=== PATIENT | male | born 1985 | race African-American/Black ===

== ENCOUNTER 2017-02-03 13:32 | Inpatient (IN) ==
[2017-02-03] MEDS ORDERED: *HR* HYDROmorphone (PF) 1 MG/ML SYRINGE IVP ONE (13:38)
[2017-02-03] MEDS ORDERED: Ondansetron 4 MG/2 ML VIAL IVP ONE (13:38)
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
[2017-02-03] MEDS ORDERED: 0.9 % Sodium Chloride 1,000 ML ONE (13:59)
[2017-02-03 14:27] LABS: Bilirubin,Urine Small (Negative); Blood,Urine Large (Negative); Clarity,Urine Turbid (Clear); Color,Urine Dark Yellow (Yellow); Glucose,Urine (UA) Normal (Normal); Ketones,Urine Negative (Negative); Leukocyte Esterase,Urine Negative (Negative); Nitrite,Urine Negative (Negative); PH,Urine 5.5 pH Units (5.0-8.0); Protein,Urine 100 mg/dL (Neg-Trace); Specific Gravity,Urine 1.019 (1.010-1.025); Urobilinogen,Urine Normal (Normal)
[2017-02-03 14:28] LABS: Bacteria,Urine None Seen per hpf (None-Few); Hyaline Casts,Urine None Seen per lpf (None-Few); RBC,Urine 50-100 per hpf (0-3); Squamous Epithelial Cell,Urine Many per lpf (None-Few); WBC,Urine 15-30 per hpf (0-3)
[2017-02-03 14:34] LABS: Amphetamine Screen,Urine Positive ng/mL (Cutoff=1000); Barbiturate Screen,Urine Negative ng/mL (Cutoff=200); Benzodiazepines Screen,Urine Negative ng/mL (Cutoff=200); Cannabinoid Screen,Urine Negative ng/mL (Cutoff = 50); Cocaine Screen,Urine Positive ng/mL (Cutoff= 300); Opiate Screen,Urine Positive ng/mL (Cutoff=300); Phencyclidine Screen,Urine Negative ng/mL (Cutoff=25)
[2017-02-03 14:38] LABS: Amorphous Sediment,Urine Many (Few)
[2017-02-03 14:46] LABS: Basophils % 0.1 %; Hematocrit 43.9 % (37.5-50.1); Hemoglobin 16.2 g/dL (12.9-16.9); Immature Granulocytes % 0.7 % (0-4); Lymphocytes # 1.8 K/mcL (0.6-4.6); Mean Corpuscular HGB Conc 36.9 g/dL (31.6-35.5); Mean Corpuscular Hemoglobin 31.8 pg (28.0-33.3); Mean Corpuscular Volume 86.2 fL (83.0-100.0); Mean Platelet Volume 10.5 fL (9.4-12.4); Monocytes # 1.9 K/mcL (0.0-1.3); Monocytes % 10.5 %; Neutrophils # 13.9 K/mcL (1.6-8.9); Platelet Count 272 K/mcL (140-400); Red Blood Count 5.09 M/mcL (4.19-5.50); Red Cell Distribution Width 11.5 % (11.5-14.5); Segmented Neutrophils % 78.7 %
[2017-02-03 14:57] LABS: INR 1.1; Prothrombin Time 11.5 Seconds (9.4-12.1)
[2017-02-03 15:08] LABS: Alanine Aminotransferase 296 Units/L (0-55); Albumin 4.5 g/dL (3.5-5.0); Albumin/Globulin Ratio 0.9 (1.1-2.2); Alkaline Phosphatase 94 Units/L (38-126); Aspartate Amino Transferase 588 Units/L (5-34); BUN/Creatinine Ratio 17 (6-26); Calcium 7.4 mg/dL (8.6-10.8); Carbon Dioxide 15 mEq/L (19-29); Chloride 80 mEq/L (98-109); Globulin 4.8 g/dL (2.4-3.5); Glucose 102 mg/dL (70-99); Lipase 39 Units/L (8-78); Osmolality,Calculated 295 (280-300); Potassium 4.6 mEq/L (3.5-4.5); Sodium 122 mEq/L (136-145); Total Protein 9.3 g/dL (6.0-8.3); eGFR For African Americans 11 (> 60); eGFR For Non-African Americans 9 (> 60)
[2017-02-03 15:11] LABS: Blood Urea Nitrogen 127 mg/dL (8-26)
[2017-02-03] MEDS ORDERED: 0.9 % Sodium Chloride 1,000 ML IVC ONE ×2 (15:16→15:24)
[2017-02-03 15:41] LABS: Acetaminophen < 1.0 mcg/mL (10-30)
--- NOTE | 2017-02-03 15:46 | Event Note ---
Date of Encounter: 02/03/17 Time of Encounter: 15:42 1. Acute renal failure likely secondary to rhabdomyolysis, severe dehydration, polysubstance abuse Start IV fluids, monitor creatinine, call nephrology consult 2. Elevated LFTs probably secondary to prior history of hepatitis C Recheck LFTs in the morning 3. Abdominal pain of unclear etiology, no evidence of obstruction on the CT scan, consider possible opiate withdrawal 4. History of IV drug abuse and polysubstance abuse Order Ativan as needed 5. Accelerated hypertension, order hydralazine IV as needed 6. Hyponatremia, unclear etiology Order urine sodium, protein, osmolality, check TSH, check cortisol Pepcid for GI prophylaxis and early ambulation for DVT prophylaxis. The patient will be admitted as inpatient, expected to stay more than 2 midnights. Full code. Time spent on this admission 40 minutes. High risk due to acute renal failure H&P to be written by LUKASZ Estrada
[2017-02-03] MEDS ORDERED: *HR* Morphine 2 MG/ML SYRINGE IVP PRN (16:09)
[2017-02-03 16:10] LABS: Creatine Kinase > 42670 Units/L (30-200)
[2017-02-03] MEDS ORDERED: 0.9 % Sodium Chloride 1,000 ML IVC SCH (16:15)
[2017-02-03] MEDS ORDERED: Ondansetron 4 MG/2 ML VIAL IVP PRN (16:33)
[2017-02-03] MEDS ORDERED: Naloxone 0.4 MG/ML INJ IVP PRN (16:33)
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
[2017-02-03 17:01] LABS: Protein/Creatinine Ratio,Urine 0.52 mg/mg (0-0.20)
[2017-02-03] MEDS: *HR* LORazepam 2 MG/ML VIAL IVP PRN ×2 (18:25→21:51)
--- NOTE | 2017-02-03 18:56 | Nephrology Consult Note ---
Date of Encounter: 02/03/17 Time of Encounter: 17:15 Assessment and Plan (1) CAROL (acute kidney injury) Status: Acute Elevated SCr in the setting of polypharmacy, accelerated HTN, elevated LFTs and rhabdomyolysis No acute indication for [employer] just yet Aggressive volume repletion warranted, first with saline and then bicarb can be added Will check uric acid, phos levels Urine studies (2) Hyponatremia Status: Acute Likely due to CAROL at 128, should improve with saline. Agree with repeat later (3) Metabolic acidosis Status: Acute Should improve if CAROL improves with saline but can add bicarb gtt by tomorrow if no significant improvement (4) Rhabdomyolysis Status: Acute Continue aggresive volume repletion Daily CPK Qualifiers: Rhabdomyolysis type: non-traumatic Qualified Code(s): M62.82 - Rhabdomyolysis (5) Accelerated hypertension Status: Acute Agree with IV meds prn History of Present Illness - Reason for Consult Consult date: 02/03/17 Acute Kidney Injury Requesting physician: Kemal Estrdaa - History of Present Illness 31 y o male with PMH of hep C and polypharmacy abuse admitted with abdominal pain along with nausea and vomiting. He was noted with elevated SCr at 7.3 with GFR at 9, BUN at 127, sodium of 122, potassium at 4.6 and bicarb of 15. Renal consulted as a result. Baseline SCr noted at 1.22, GFR >60 as of 08/2016. Patient seen and examined but very apparent he is under the influence of some substances as noted from his UDS including amphetamines, opiates (iv heroin per records) and cocaine. CPK noted at >42,000! he received 2 liters of saline in the ER so far. CT abd/pelvis unremarkable. Past Med Surg Social Fam HX - Past Medical History Medical history: DVT, hepatitis Psychiatric history: no psych history - Past Surgical History Surgical History: other - Social History Smoking Status: Current every day smoker Packs per day: 1/2 PPD Smokeless Tobacco Status: No Alcohol use: occasionally Drug use: cocaine, marijuana, IVDU - Family History Father Race: Family Member Ethnicity: Non- Living Status: Still Living Hx Family Cardiac Disorders: Yes (HD, HTN, Stent placement) Mother Race: Family Member Ethnicity: Non- Living Status: Still Living Hx Family Medical Disorders: No Brother Race: Family Member Ethnicity: Non- Living Status: Still Living Hx Family Medical Disorders: No Sister Race: Family Member Ethnicity: Non- Living Status: Still Living Hx Family Medical Disorders: No Medications and Allergies Amlodipine Besylate 10 mg PO DAILY #30 tablet 02/06/17 [Rx] Allergies No Known Allergies Allergy (Verified 06/12/16 12:48) Review of Systems All Systems: reviewed and no additional remarkable complaints except as stated ( 10 systems reviewed) Exam - Vital Signs Vital signs: Initial Vital Signs Temp Pulse Resp BP Pulse Ox 98.1 F 99 22 169/113 96 02/03/17 13:33 02/03/17 13:33 02/03/17 13:33 02/03/17 13:33 02/03/17 13:33 Vital Signs - Last 8 Hours Temp Pulse Resp BP Pulse Ox 02/03/17 18:38 98.2 F 106 20 165/90 95 Intake and Output 02/03/17 02/03/17 02/03/17 07:59 15:59 23:59 Other: Meal Dinner Percent of Meal Consumed 40% - General Appearance General appearance: well-developed, well-nourished EENT: ATNC, mucous membranes moist Neck: no JVD, supple Respiratory: clear (ant bilat) Cardiology: no edema, normal S1, normal S2 Gastrointestinal: no tenderness, no guarding Integumentary: warm and dry Additional Comments: moving all extermities but still under the influence of substances Musculoskeletal: no deformities Psychiatric: cooperative Results - Lab Results 02/05/17 03:55 02/06/17 04:42 Most recent lab results Calcium 7.4 mg/dL (8.6-10.8) L 02/03/17 14:38 Urine Creatinine 200 mg/dL 02/03/17 16:43 Urine Sodium 31.0 mEq/L 02/03/17 16:43 Urine Total Protein 104 mg/dL (1-14) H 02/03/17 16:43 Consult Discharge Plan - Plan Instructions: Amlodipine (By mouth), Chronic Hypertension (DC) Referrals: Madeleine Paris DO [Resident] - 03/25/17 9:00 am Prescriptions: Amlodipine Besylate 10 mg PO DAILY #30 tablet
[2017-02-03 19:54] LABS: Phosphorous 13.3 mg/dL (2.3-4.7); Uric Acid 21.2 mg/dL (3.5-7.2)
[2017-02-03] MEDS ORDERED: *HR* LORazepam 2 MG/ML VIAL IVP PRN (23:48)
[2017-02-04] MEDS: 0.9 % Sodium Chloride 1,000 ML IVC SCH ×3 (03:24→22:35)
[2017-02-04 04:15] LABS: Albumin/Globulin Ratio 0.9 (1.1-2.2); Bilirubin,Total 1.3 mg/dL (0.2-1.2); Calcium 7.8 mg/dL (8.6-10.8); Globulin 4.1 g/dL (2.4-3.5); Potassium 3.8 mEq/L (3.5-4.5); Total Protein 7.6 g/dL (6.0-8.3)
[2017-02-04 04:17] LABS: Alanine Aminotransferase 251 Units/L (0-55); Albumin 3.5 g/dL (3.5-5.0); Albumin/Globulin Ratio 0.9 (1.1-2.2); Alkaline Phosphatase 75 Units/L (38-126); Aspartate Amino Transferase 448 Units/L (5-34); Bilirubin,Direct 0.6 mg/dL (0.0-0.5); Bilirubin,Indirect 0.8 mg/dL (0.0-1.2); Bilirubin,Total 1.4 mg/dL (0.2-1.2); Chol/HDL Ratio 5.3 (0-4.9); Cholesterol 132 mg/dL (< 200); HDL Cholesterol 25 mg/dL (40-59); LDL Cholesterol,Calculated 64 mg/dL (0-99); Magnesium 2.8 mg/dL (1.6-2.6); Total Protein 7.5 g/dL (6.0-8.3); Triglycerides 217 mg/dL (< 150)
[2017-02-04 04:23] LABS: Phosphorous 4.8 mg/dL (2.3-4.7)
[2017-02-04 04:24] LABS: Albumin 3.5 g/dL (3.5-5.0)
[2017-02-04 04:38] LABS: Thyroid Stimulating Hormone 0.125 mcIU/mL (0.350-4.840)
[2017-02-04 05:01] LABS: Basophils % 0.1 %; Eosinophils % 0.1 %; Hematocrit 39.5 % (37.5-50.1); Hemoglobin 14.6 g/dL (12.9-16.9); Immature Granulocytes % 0.3 % (0-4); Lymphocytes # 1.4 K/mcL (0.6-4.6); Lymphocytes % 11.5 %; Mean Corpuscular Hemoglobin 32.4 pg (28.0-33.3); Mean Corpuscular Volume 87.6 fL (83.0-100.0); Mean Platelet Volume 11.1 fL (9.4-12.4); Monocytes # 1.5 K/mcL (0.0-1.3); Monocytes % 12.5 %; Platelet Count 245 K/mcL (140-400); Red Blood Count 4.51 M/mcL (4.19-5.50); Red Cell Distribution Width 11.8 % (11.5-14.5); Segmented Neutrophils % 75.5 %
[2017-02-04] MEDS: Pantoprazole 40 MG VIAL IVP SCH (07:43)
[2017-02-04] MEDS ORDERED: Ondansetron 4 MG/2 ML VIAL IVP PRN (09:35)
[2017-02-04 10:13] LABS: Creatine Kinase > 42670 Units/L (30-200)
[2017-02-04 10:50] LABS: Hepatitis A Antibody IgM Nonreactive (Nonreactive); Hepatitis B Core IgM Nonreactive (Nonreactive); Hepatitis B Surface Antigen Nonreactive (Nonreactive)
[2017-02-04 11:11] LABS: Hepatitis C Virus Antibody Reactive (Nonreactive)
--- NOTE | 2017-02-04 11:31 | Internal Med Progress Note ---
Date of Encounter: 02/04/17 Time of Encounter: 10:35 - Assessment and plan (1) Acute kidney failure Current Visit: Yes Status: Acute Assessment and plan: Due to rhabdomyolysis. Renal function is improving. Patient having good urine output. Creatinine is 3.5 today. BUN 116. Uremia is likely causing patient's nausea and vomiting. Continue IV hydration. Nephrology input appreciated. We will continue to monitor input and output. Moderate risk for complications. Qualifiers: Acute renal failure type: with acute tubular necrosis Qualified Code(s): N17.0 - Acute kidney failure with tubular necrosis (2) Essential hypertension Current Visit: Yes Status: Chronic Assessment and plan: Blood pressure is now much better. Continue to monitor. Will place patient on amlodipine (3) Polysubstance abuse Current Visit: Yes Status: Chronic Assessment and plan: Patient currently not having any withdrawal symptoms. Will consult manager social responsibility. (4) Elevated LFTs Current Visit: Yes Status: Acute Assessment and plan: Elevated but improving. Likely related to rhabdomyolysis. (5) Abdominal pain of unknown cause Current Visit: Yes Status: Acute Assessment and plan: This is improving. Patient remains nauseated but this is likely related to uremia. (6) Accelerated hypertension Current Visit: Yes Status: Acute (7) Hyponatremia Current Visit: Yes Status: Acute Assessment and plan: Improving. Likely from dehydration and rhabdomyolysis (8) Rhabdomyolysis Current Visit: Yes Status: Acute Assessment and plan: CK levels remain severely elevated. Continue IV hydration. Qualifiers: Rhabdomyolysis type: non-traumatic Qualified Code(s): M62.82 - Rhabdomyolysis (9) CAROL (acute kidney injury) Current Visit: Yes Status: Acute - Subjective Interval history: Patient complains of nausea and vomiting today. No abdominal pain. No fever chills or night sweats overnight. Having good urine output. - Constitutional Vitals: Temp Pulse Resp BP Pulse Ox 98.9 F 94 18 146/68 93 02/04/17 07:56 02/04/17 11:03 02/04/17 07:56 02/04/17 07:56 02/04/17 07:56 General appearance: Present: A&O X 2, mild distress, obese, answers questions appropriately - Respiratory Respiratory exam: Present: CTAB. Absent: accessory muscle use, rales, rhonchi, wheezes - Cardiovascular Cardiovascular exam: Present: RRR, +S1, +S2. Absent: diastolic murmur, gallop, rubs, systolic murmur - GI/Abdominal GI/Abdominal exam: Present: normal bowel sounds, soft, no peritoneal signs. Absent: distended, tenderness - Extremities Exam Extremities exam: Present: warm, radial pulses palpable and symetrical. Absent : calf tenderness, cyanotic, pedal edema Internal Medicine: Result - Labs CBC & Chem 7: 02/04/17 04:29 02/04/17 03:49 Labs: Short CBC 02/04/17 Range/Units 04:29 WBC 12.0 H (4.3-11.1) K/mcL Hgb 14.6 D (12.9-16.9) g/dL Hct 39.5 (37.5-50.1) % Plt Count 245 (140-400) K/mcL Neutrophils # 9.0 H (1.6-8.9) K/mcL BMP 02/03/17 02/04/17 21:47 03:49 Sodium 128 L 131 L Potassium 3.8 Chloride 97 L D Carbon Dioxide 19 BUN 116 H Creatinine 3.50 H D Glucose 114 H Calcium 7.8 L Liver Function 02/04/17 02/04/17 Range/Units 03:49 03:49 Total Bilirubin 1.3 H 1.4 H (0.2-1.2) mg/dL Direct Bilirubin 0.6 H (0.0-0.5) mg/dL AST 446 H 448 H (5-34) Units/L ALT 249 H 251 H (0-55) Units/L Alkaline Phosphatase 74 75 (38-126) Units/L Albumin 3.5 D 3.5 (3.5-5.0) g/dL - ABG Interpretation ABG results: PT/INR, D-dimer PT 11.5 Seconds (9.4-12.1) 02/03/17 14:38 Consult Discharge Plan - Plan Referrals: NO,PCP [Primary Care Provider] - (SENT [facility] TO [facility] FOR A 5-7 DAY FOLLOW UP @ [id number]) - Attending Attestation This document has been at least partially created by [employer] recognition technology by Dr. Coronel. Errors in grammar, wording or other phrases may exist. If errors are found after the documentation is signed, they will be addressed individually in the addendum section of this document when appropriate.
[2017-02-04] MEDS: amLODIPine 5 MG TABLET PO SCH (13:14)
--- NOTE | 2017-02-04 16:29 | Nephrology Progress Note ---
Date of Encounter: 02/04/17 Time of Encounter: 12:00 - Assessment and Plan (1) CAROL (acute kidney injury) Status: Acute Scr improving from 7.3 to 3.5, GFR 25 today. No acute indication for utilization review nurse at this point Continue aggressive volume repletion Continue to avoid nephrotxins if possible Hyperuricemia noted at 21.2 but improving to 10.1 today, will monitor Hyperphosphatemia also noted at 13.3 improving to 4.8 today urine eosinophils negative (2) Hyponatremia Status: Acute sodium improved from 128 to 131 with saline, will continue (3) Metabolic acidosis Status: Acute (4) Rhabdomyolysis Status: Acute CPK still very high at >42,000. will continue aggressive volume repletion Qualifiers: Rhabdomyolysis type: non-traumatic Qualified Code(s): M62.82 - Rhabdomyolysis (5) Accelerated hypertension Status: Acute Subjective Interval history: pt seen and examined feeling a little better. No new complaints. Objective - Vital Signs Vital signs: Vital Signs Temp Pulse Resp BP Pulse Ox 02/04/17 15:19 98.5 F 89 15 157/88 96 02/04/17 15:11 85 02/04/17 11:43 98.6 F 96 18 164/102 94 02/04/17 11:03 94 02/04/17 07:56 98.9 F 97 18 146/68 93 02/04/17 07:35 104 02/04/17 04:00 99.5 F 95 16 146/85 02/03/17 22:29 99.6 F 94 20 149/118 93 02/03/17 20:00 98 20 145/89 95 02/03/17 19:11 98 20 148/70 95 02/03/17 18:50 106 165/90 02/03/17 18:38 98.2 F 106 20 165/90 95 02/03/17 18:20 104 163/119 99 Intake and Output 02/04/17 02/04/17 02/04/17 07:59 15:59 23:59 Intake Total 1000 / 1000 Output Total 800 / 800 1200 / 1200 Balance -800 / -800 -200 / -200 Intake: IV Fluids 1000 / 1000 0.9 % Sodium Chloride 1, 1000 / 1000 000 ML @ 100 mls/hr IVC . Q10H [facility] Rx#:[id number] Output: Urine 800 / 800 1200 / 1200 Other: Meal Lunch Percent of Meal Consumed 75% Weight 87.5 kg Patient Weight 02/04/17 23:59 Weight 87.5 kg - General Appearance General appearance: Present: well-developed, well-nourished EENT: Present: ATNC, mucous membranes moist Neck: Present: no JVD, supple Respiratory: Present: clear Cardiology: Present: no edema, normal S1, normal S2 Gastrointestinal: Present: no tenderness, no guarding Integumentary: Present: warm and dry Neurologic: Present: no focal deficit Musculoskeletal: Present: no deformities Psychiatric: Present: mood/affect appropriate - Lab 02/05/17 03:55 02/06/17 04:42 Most recent lab results Calcium 7.8 mg/dL (8.6-10.8) L 02/04/17 03:49 Phosphorus 4.8 mg/dL (2.3-4.7) H D 02/04/17 03:49 Magnesium 2.8 mg/dL (1.6-2.6) H 02/04/17 03:49 Urine Creatinine 200 mg/dL 02/03/17 16:43 Urine Sodium 31.0 mEq/L 02/03/17 16:43 Urine Total Protein 104 mg/dL (1-14) H 02/03/17 16:43 Consult Discharge Plan - Plan Instructions: Amlodipine (By mouth), Chronic Hypertension (DC) Referrals: Madeleine Paris DO [Resident] - 03/25/17 9:00 am Prescriptions: Amlodipine Besylate 10 mg PO DAILY #30 tablet
[2017-02-05 04:20] LABS: Basophils % 0.1 %; Eosinophils # 0.1 K/mcL (0.0-0.6); Eosinophils % 0.6 %; Hematocrit 35.1 % (37.5-50.1); Immature Granulocytes % 0.6 % (0-4); Lymphocytes # 2.1 K/mcL (0.6-4.6); Lymphocytes % 22.8 %; Mean Corpuscular HGB Conc 34.8 g/dL (31.6-35.5); Mean Corpuscular Hemoglobin 31.3 pg (28.0-33.3); Mean Platelet Volume 10.6 fL (9.4-12.4); Monocytes # 1.3 K/mcL (0.0-1.3); Monocytes % 14.5 %; Neutrophils # 5.6 K/mcL (1.6-8.9); Platelet Count 200 K/mcL (140-400); Red Cell Distribution Width 11.9 % (11.5-14.5); Segmented Neutrophils % 61.4 %
[2017-02-05 04:21] LABS: Hemoglobin 12.2 g/dL (12.9-16.9)
[2017-02-05 04:32] LABS: BUN/Creatinine Ratio 46 (6-26); Calcium 8.6 mg/dL (8.6-10.8); Carbon Dioxide 25 mEq/L (19-29); Chloride 106 mEq/L (98-109); Glucose 90 mg/dL (70-99); Osmolality,Calculated 301 (280-300); Potassium 3.9 mEq/L (3.5-4.5); eGFR For African Americans > 60 (> 60); eGFR For Non-African Americans > 60 (> 60)
[2017-02-05 04:34] LABS: Blood Urea Nitrogen 49 mg/dL (8-26); Sodium 139 mEq/L (136-145)
[2017-02-05 05:48] LABS: Creatine Kinase 12139 Units/L (30-200)
[2017-02-05] MEDS: Pantoprazole 40 MG VIAL IVP SCH (08:15)
[2017-02-05] MEDS: amLODIPine 5 MG TABLET PO SCH (09:44)
--- NOTE | 2017-02-05 11:27 | Internal Med Progress Note ---
Date of Encounter: 02/05/17 Time of Encounter: 11:25 - Assessment and plan (1) Transaminitis Current Visit: Yes Status: Acute Assessment and plan: Improving slighlty, possibly secondary to elevated CK from rhabdo as well as chronic hep C Continue to monitor (2) Acute kidney failure Current Visit: Yes Status: Acute Assessment and plan: Secondary to rhabdomyolysis. Renal function is improving. Patient having good urine output. Creatinine is 1 today. BUN 46 Encourage liberal fluid intake, patient with poor insight, will keep one more night, anticipate d/c a.m depending on clinical outcome Nephrology input appreciated. We will continue to monitor input and output. Qualifiers: Acute renal failure type: with acute tubular necrosis Qualified Code(s): N17.0 - Acute kidney failure with tubular necrosis (3) Polysubstance abuse Current Visit: Yes Status: Chronic Assessment and plan: Patient currently not having any withdrawal symptoms. SW for resources (4) Hepatitis C Current Visit: Yes Status: Chronic Assessment and plan: Chronic, will need to follow up with PCP for evaluation for treatment Patient is likely not a good candidate due to active drug use Qualifiers: Viral hepatitis chronicity: chronic Hepatic coma status: without hepatic coma Qualified Code(s): B18.2 - Chronic viral hepatitis C (5) Hypertension Current Visit: Yes Status: Acute Assessment and plan: Uncontrolled for age Increase Norvasc to 10mg daily Qualifiers: Hypertension type: essential hypertension Qualified Code(s): I10 - Essential (primary) hypertension (6) Rhabdomyolysis Current Visit: Yes Status: Acute Assessment and plan: Secondary to drug use CK levels improving, continue care as in CAROL Qualifiers: Rhabdomyolysis type: non-traumatic Qualified Code(s): M62.82 - Rhabdomyolysis - Subjective Interval history: Seen and evaluated at bedside No new complains Ambulatory, making urine Labs shows improvement in all numbers-Cr/CK/Urate/LFTs Nephrology input appreciated - Constitutional Vitals: Temp Pulse Resp BP Pulse Ox 98.6 F 68 16 138/69 96 02/05/17 07:04 02/05/17 07:10 02/05/17 07:04 02/05/17 07:04 02/05/17 07:04 General appearance: Present: A&O X 3, pleasant, no acute distress, answers questions appropriately - Head Head exam: Present: atraumatic, normocephalic - Eye Eye exam: Present: PERRL, conjuntiva pink, sclera anicteric Pupils: Present: PERRL - Neck Neck exam general surgery: Present: supple, trachea midline. Absent: lymphadenopathy - Respiratory Respiratory exam: Present: CTAB. Absent: accessory muscle use, rales, rhonchi, wheezes - Cardiovascular Cardiovascular exam: Present: RRR, +S1, +S2. Absent: diastolic murmur, gallop, rubs, systolic murmur - GI/Abdominal GI/Abdominal exam: Present: normal bowel sounds, soft, no peritoneal signs. Absent: distended, tenderness - Extremities Exam Extremities exam: Present: warm, radial pulses palpable and symetrical. Absent : calf tenderness, cyanotic, pedal edema - Neurological Exam Neurological exam: Present: alert, CN II-XII intact, oriented X3, no focal deficits. Absent: pronater drift, facial droop, speech deficit - Skin Skin exam: Present: dry, intact Internal Medicine: Result - Labs CBC & Chem 7: 02/05/17 03:55 02/05/17 03:55 Labs: Short CBC 02/05/17 Range/Units 03:55 WBC 9.0 (4.3-11.1) K/mcL Hgb 12.2 L D (12.9-16.9) g/dL Hct 35.1 L (37.5-50.1) % Plt Count 200 (140-400) K/mcL Neutrophils # 5.6 (1.6-8.9) K/mcL BMP 02/05/17 03:55 Sodium 139 D Potassium 3.9 Chloride 106 Carbon Dioxide 25 BUN 49 H D Creatinine 1.06 D Glucose 90 Calcium 8.6 - ABG Interpretation ABG results: PT/INR, D-dimer PT 11.5 Seconds (9.4-12.1) 02/03/17 14:38 Consult Discharge Plan - Plan Referrals: NO,PCP [Primary Care Provider] - (SENT WEB REQUEST TO [facility] FOR A 5-7 DAY FOLLOW UP @ 0807) Madeleine Paris DO [Resident] - 03/25/17 9:00 am
--- NOTE | 2017-02-05 13:09 | Nephrology Progress Note ---
Date of Encounter: 02/05/17 Time of Encounter: 12:00 - Assessment and Plan (1) CAROL (acute kidney injury) Status: Acute SCr normalized at 1.06, GFR >60 UOP great at 2520cc in the past 24hrs CK dropping at 12,139. Continue aggresive volume repletion for one more day Continue to avoid nephrotoxins if possible Hyperuricemia resolving hyperphosphatemia resolving as well will sign off, please reconsult prn (2) Hyponatremia Status: Acute (3) Metabolic acidosis Status: Acute (4) Rhabdomyolysis Status: Acute Qualifiers: Rhabdomyolysis type: non-traumatic Qualified Code(s): M62.82 - Rhabdomyolysis (5) Accelerated hypertension Status: Acute Subjective Interval history: Pt seen and examined doing better but still with some achy muscles in arms and abdominal area. UOP great Objective - Vital Signs Vital signs: Vital Signs Temp Pulse Resp BP Pulse Ox 02/05/17 13:00 63 02/05/17 11:42 98.0 F 61 15 160/87 98 02/05/17 07:10 68 02/05/17 07:04 98.6 F 62 16 138/69 96 02/05/17 03:41 98.4 F 72 18 127/57 96 02/04/17 23:47 99.5 F 76 17 145/76 94 02/04/17 20:02 97.9 F 87 18 153/77 96 02/04/17 15:19 98.5 F 89 15 157/88 96 02/04/17 15:11 85 Intake and Output 02/04/17 02/05/17 02/05/17 23:59 07:59 15:59 Intake Total 1240 / 1240 1380 / 1380 1360 / 1360 Output Total 520 / 520 2100 / 2100 Balance 720 / 720 -720 / -720 1360 / 1360 Intake: IV Fluids 1000 / 1000 900 / 900 0.9 % Sodium Chloride 1, 1000 / 1000 900 / 900 000 ML @ 100 mls/hr IVC . Q10H [facility] Rx#:[id number] Oral 240 / 240 480 / 480 1360 / 1360 Output: Urine 520 / 520 2100 / 2100 Other: Meal Dinner Breakfast Percent of Meal Consumed 100% 10% # Voids 2 # Bowel Movements 2 Weight 88.2 kg Patient Weight 02/05/17 23:59 Weight 88.2 kg - General Appearance General appearance: Present: well-developed, well-nourished EENT: Present: ATNC, mucous membranes moist Neck: Present: no JVD, supple Cardiology: Present: no edema, normal S1, normal S2 Gastrointestinal: Present: no tenderness, no guarding Integumentary: Present: warm and dry Neurologic: Present: no focal deficit Musculoskeletal: Present: no deformities Psychiatric: Present: mood/affect appropriate - Lab 02/05/17 03:55 02/06/17 04:42 Most recent lab results Calcium 8.6 mg/dL (8.6-10.8) 02/05/17 03:55 Phosphorus 4.8 mg/dL (2.3-4.7) H D 02/04/17 03:49 Magnesium 2.8 mg/dL (1.6-2.6) H 02/04/17 03:49 Urine Creatinine 200 mg/dL 02/03/17 16:43 Urine Sodium 31.0 mEq/L 02/03/17 16:43 Urine Total Protein 104 mg/dL (1-14) H 02/03/17 16:43 Consult Discharge Plan - Plan Instructions: Amlodipine (By mouth), Chronic Hypertension (DC) Referrals: Madeleine Paris DO [Resident] - 03/25/17 9:00 am Prescriptions: Amlodipine Besylate 10 mg PO DAILY #30 tablet
[2017-02-05] MEDS ORDERED: amLODIPine 5 MG TABLET PO ONE (13:34)
--- NOTE | 2017-02-05 17:53 | Electrocardiograph Report ---
[place] [address] Test Date: 2017-02-03 Pat Name: Aayush Segura Department: 110 Room: 2N04 Gender: M Insulation Technician: : 1985 Requested By: Kemal Estrada Order Number: [id number] Reading MD: Caro Rick Measurements Intervals [place] Rate: 93 P: 88 CA: 119 QRS: 70 QRSD: 82 T: 60 QT: 339 QTc: 390 Interpretive Statements SINUS RHYTHM WITH SHORT CA INTERVAL MODERATE VOLTAGE CRITERIA FOR LVH, CONSIDER NORMAL VARIANT Electronically Signed On 02-05-2017 17:52:06 EDT by Caro Rick
[2017-02-06 05:33] LABS: Alanine Aminotransferase 173 Units/L (0-55); Albumin 3.1 g/dL (3.5-5.0); Albumin/Globulin Ratio 0.8 (1.1-2.2); Alkaline Phosphatase 63 Units/L (38-126); Aspartate Amino Transferase 170 Units/L (5-34); BUN/Creatinine Ratio 26 (6-26); BUN/Creatinine Ratio 27 (6-26); Bilirubin,Total 0.8 mg/dL (0.2-1.2); Blood Urea Nitrogen 23 mg/dL (8-26); Calcium 9.2 mg/dL (8.6-10.8); Calcium 9.3 mg/dL (8.6-10.8); Carbon Dioxide 30 mEq/L (19-29); Chloride 104 mEq/L (98-109); Creatine Kinase 3756 Units/L (30-200); Globulin 3.7 g/dL (2.4-3.5); Glucose 98 mg/dL (70-99); Osmolality,Calculated 296 (280-300); Osmolality,Calculated 298 (280-300); Potassium 3.7 mEq/L (3.5-4.5); Sodium 141 mEq/L (136-145); Sodium 142 mEq/L (136-145); Total Protein 6.8 g/dL (6.0-8.3); Uric Acid 4.6 mg/dL (3.5-7.2); eGFR For African Americans > 60 (> 60); eGFR For Non-African Americans > 60 (> 60)
[2017-02-06 07:32] VITALS: BP 126/93
[2017-02-06] MEDS ORDERED: amLODIPine 5 MG TABLET PO SCH (09:00)
--- NOTE | 2017-02-06 09:29 | Discharge Summary ---
Date of Encounter: 02/06/17 Time of Encounter: 09:29 - Discharge Diagnosis (1) Transaminitis Priority: Primary Status: Acute (2) Acute kidney failure Priority: Primary Status: Acute Qualifiers: Acute renal failure type: with acute tubular necrosis Qualified Code(s): N17.0 - Acute kidney failure with tubular necrosis (3) Polysubstance abuse Priority: Secondary Status: Chronic (4) Hepatitis C Priority: Secondary Status: Chronic Qualifiers: Viral hepatitis chronicity: chronic Hepatic coma status: without hepatic coma Qualified Code(s): B18.2 - Chronic viral hepatitis C (5) Hypertension Priority: Secondary Status: Chronic Qualifiers: Hypertension type: essential hypertension Qualified Code(s): I10 - Essential (primary) hypertension (6) Rhabdomyolysis Priority: Primary Status: Acute Qualifiers: Rhabdomyolysis type: non-traumatic Qualified Code(s): M62.82 - Rhabdomyolysis - Discharge Medications Prescriptions: Amlodipine Besylate 10 mg PO DAILY #30 tablet Home Medications: Amlodipine Besylate 10 mg PO DAILY #30 tablet 02/06/17 [Rx] Allergies/Adverse Reactions: Allergies No Known Allergies Allergy (Verified 06/12/16 12:48) Date of admission: 02/03/17 17:01 Primary care physician: PCP NO Discharging clinician: Dangelo Metz Anticipated date of discharge: 02/06/17 - Patient Status Disposition: Home, Self-Care Condition: Good - Discharge Instructions Instructions: Amlodipine (By mouth), Chronic Hypertension (DC) Follow Up With: Madeleine Paris DO [Resident] - 03/25/17 9:00 am - Diet and Activity Activity: resume usual activities as tolerated Diet: low salt diet Interval History: See below Hospital course: Mr. Segura is a 31 year old male with PMH of Polysusbstance abuse, Chronic Hep C from IVDU He was in his usual state of health till 02/03 when he presented to the ER with multiple no-specific complains On admission in ER, he was hyperstimulated and high on stimulants. Work up revealed CAROL with Cr of >7, Uriac acid >20, Transaminitis, dehydration, CK >40, 000, Elevated BP with DBP >110 He was admitted and managed for CAROL , NOn-traumatic rhabdomyolysis from drug use , Hyperuricemia, Transaminitie Work up confirmed Hep C He was managed conservatively with IVF Seen and evaluated this morning, his BP has been controlled on Amlodipine, he is discharged on same His CAROL has resolved for the past 48 hrs, and his CK is ~3000, Uric acid has normalized and transaminitis has significantly improved Patient given resources for rehab/drug cessation by SW Educated extensively on diagnosis of HTN, side effects of medications and complications of illicit drug use and uncontrolled HTN He needs follow up with PCP for his HTN, and chronic Hep c [place] of care discussed, verbalized understanding Time spent discussing smoking cessation with patient: 3 to 10 minutes (4 minutes spent discussing tobacco cessation) - Time Spent with Patient Total time spent providing and/or coordinating discharge services: Greater than 30 minutes (35 minutes spent on patient encounter, chart review , patient education) - Constitutional Vitals: Temp Pulse Resp BP Pulse Ox 98.5 F 85 18 126/93 94 02/06/17 07:30 02/06/17 08:12 02/06/17 07:30 02/06/17 07:30 02/06/17 07:30 General appearance: Present: A&O X 3, pleasant, no acute distress, answers questions appropriately - Head Head exam: Present: atraumatic, normocephalic - Eye Eye exam: Present: PERRL, conjuntiva pink, sclera anicteric Pupils: Present: PERRL - Neck Neck exam general surgery: Present: supple, trachea midline. Absent: lymphadenopathy - Respiratory Respiratory exam: Present: CTAB. Absent: accessory muscle use, rales, rhonchi, wheezes - Cardiovascular Cardiovascular exam: Present: RRR, +S1, +S2. Absent: diastolic murmur, gallop, rubs, systolic murmur - GI/Abdominal GI/Abdominal exam: Present: normal bowel sounds, soft, no peritoneal signs. Absent: distended, tenderness - Extremities Exam Extremities exam: Present: warm, radial pulses palpable and symetrical. Absent : calf tenderness, cyanotic, pedal edema - Neurological Exam Neurological exam: Present: alert, CN II-XII intact, oriented X3, no focal deficits. Absent: pronater drift, facial droop, speech deficit - Skin Skin exam: Present: dry, intact Additional comments: Tattoos all over the body and face - VTE Documentation of Mechanical Device: Graduated compression elastic hosiery
== END 2017-02-06 11:07 | disposition home or self-care (01) | DRG 469 ==
LOC: 2ANU 13:32 → EMEROO 13:32 → 2NNU 16:24 → SUATTDRO 17:01
PROVIDERS: ADMIT Internal Medicine; ATTEND Internal Medicine

== ENCOUNTER 2020-04-08 20:22 | Observation (INO) ==
[~2020-04-08 20:22] MED LIST: Aminoglycoside Consult 1 EACH MC ONE
[2020-04-08] MEDS ORDERED: Acetaminophen 325 MG TABLET PO ONE (20:26)
[2020-04-08] MEDS ORDERED: Ondansetron ODT 4 MG TAB.RAPDIS SL ONE (20:44)
[2020-04-08] MEDS ORDERED: Isovue-370 500 ML BOTTLE IVP ONE ×2 (20:52→20:58)
[2020-04-08] MEDS ORDERED: Piperacillin/Tazobactam 3.375 GM in 0.9 % Sodium Chloride Mini Bag 100 ML IVPB ONE (21:02)
[2020-04-08] MEDS ORDERED: 0.9 % Sodium Chloride 1,000 ML IVC ONE (21:06)
[2020-04-08 21:07] LABS: Basophils % 0.3 %; Eosinophils % 0.2 %; Hematocrit 37.9 % (37.5-50.1); Hemoglobin 12.5 g/dL (12.9-16.9); Immature Granulocytes % 0.6 % (0-4); Lymphocytes % 9.2 %; Mean Corpuscular Hemoglobin 30.6 pg (28.0-33.3); Mean Corpuscular Volume 92.9 fL (83.0-100.0); Mean Platelet Volume 9.2 fL (9.4-12.4); Monocytes % 9.3 %; Neutrophils # 8.7 K/mcL (1.6-8.9); Platelet Count 261 K/mcL (140-400); Red Blood Count 4.08 M/mcL (4.19-5.50); Red Cell Distribution Width 11.9 % (11.5-14.5); Segmented Neutrophils % 80.4 %; White Blood Count 10.9 K/mcL (4.3-11.1)
[2020-04-08 21:17] LABS: INR 1.3; Prothrombin Time 14.4 Seconds (9.4-12.1)
[2020-04-08 21:20] LABS: Activated Partial Thrombo Time 36.9 Seconds (26.0-36.0)
[2020-04-08 21:31] LABS: Alanine Aminotransferase 87 Units/L (7-52); Albumin 4.2 g/dL (3.5-5.7); Alkaline Phosphatase 123 Units/L (34-104); Aspartate Amino Transferase 65 Units/L (13-39); BUN/Creatinine Ratio 20 (6-26); Bilirubin,Direct 0.2 mg/dL (0.0-0.2); Bilirubin,Indirect 0.5 mg/dL (0.0-1.0); Bilirubin,Total 0.7 mg/dL (0.3-1.0); Blood Urea Nitrogen 18 mg/dL (6-20); Calcium 9.4 mg/dL (8.6-10.3); Carbon Dioxide 29 mEq/L (23-29); Chloride 94 mEq/L (98-107); Globulin 4.1 g/dL (2.4-3.5); Glucose 101 mg/dL (70-105); Magnesium 1.3 mg/dL (1.6-2.6); Osmolality,Calculated 272 (280-300); Phosphorous 2.8 mg/dL (2.7-4.5); Potassium 3.9 mEq/L (3.5-5.1); Sodium 130 mEq/L (136-145); Total Protein 8.3 g/dL (6.4-8.9); Troponin I 0.07 ng/mL (< 0.04); eGFR For African Americans > 60 (> 60); eGFR For Non-African Americans > 60 (> 60)
[2020-04-08 21:33] LABS: Procalcitonin 1.49 ng/mL (0.00-0.15)
[2020-04-08] MEDS ORDERED: Vancomycin 1,500 MG/265 ML IV.SOLN IVPB ONE (22:00)
[2020-04-08 22:08] LABS: Creatine Kinase 82 Units/L (30-223); Ethanol < 10 mg/dL (Less than 10)
[2020-04-08] MEDS: Aspirin 81 MG TAB.CHEW PO SCH (22:15)
[2020-04-08 22:18] LABS: Hepatitis B Surface Antigen Nonreactive (Nonreactive)
[2020-04-08 22:33] LABS: Bilirubin,Urine Negative (Negative); Blood,Urine Negative (Negative); Clarity,Urine Clear (Clear); Color,Urine Yellow (Yellow); Glucose,Urine (UA) Normal (Normal); Ketones,Urine Trace mg/dL (Negative); Leukocyte Esterase,Urine Negative (Negative); Nitrite,Urine Negative (Negative); Protein,Urine Trace mg/dL (Neg-Trace); Specific Gravity,Urine 1.023 (1.010-1.025)
[2020-04-08 22:43] LABS: Amphetamine Screen,Urine Positive ng/mL (Cutoff=1000); Barbiturate Screen,Urine Negative ng/mL (Cutoff=200); Benzodiazepines Screen,Urine Negative ng/mL (Cutoff=200); Cannabinoid Screen,Urine Positive ng/mL (Cutoff = 50); Cocaine Screen,Urine Negative ng/mL (Cutoff= 300); Opiate Screen,Urine Negative ng/mL (Cutoff=300); Phencyclidine Screen,Urine Negative ng/mL (Cutoff=25)
[2020-04-08 22:47] LABS: Adenovirus Not Detected (Not Detect); Bordetella Pertussis Not Detected (Not Detect); Chlamydophila pneumoniae Not Detected (Not Detect); Coronavirus 229E Not Detected (Not Detect); Coronavirus HKU1 Not Detected (Not Detect); Coronavirus NL63 Not Detected (Not Detect); Coronavirus OC43 Not Detected (Not Detect); Human Metapneumovirus Not Detected (Not Detect); Human Rhinovirus/Enterovirus Not Detected (Not Detect); Influenza A Subtype 2009 H1 Not Detected (Not Detect); Influenza B Not Detected (Not Detect); Mycoplasma pneumoniae Not Detected (Not Detect); Parainfluenza Virus 1 Not Detected (Not Detect); Parainfluenza Virus 2 Not Detected (Not Detect); Parainfluenza Virus 3 Not Detected (Not Detect); Parainfluenza Virus 4 Not Detected (Not Detect); Respiratory Syncytial Virus Not Detected (Not Detect)
[2020-04-08 22:48] LABS: Hepatitis B Core IgM Nonreactive (Nonreactive)
[2020-04-08 22:48] LABS: SARS-CoV-2 Not Detected (Not Detect)
[2020-04-08 22:49] LABS: Hepatitis A Antibody IgM Nonreactive (Nonreactive)
[2020-04-09 00:10] LABS: Hepatitis C Virus Antibody Reactive (Nonreactive)
[2020-04-09] MEDS ORDERED: Ondansetron ODT 4 MG TAB.RAPDIS SL PRN (02:22)
[2020-04-09] MEDS ORDERED: Naloxone 0.4 MG/ML INJ IVP PRN (02:22)
[2020-04-09] MEDS ORDERED: Perflutren Lipid Microsphere 1.3 ML in 0.9 % Sodium Chloride 8.7 ML IVP PRN (03:50)
[2020-04-09] MEDS: Azithromycin 500 MG in 0.9 % Sodium Chloride 250 ML IVPB SCH (04:20)
[2020-04-09] MEDS: *HR* Enoxaparin 40 MG/0.4 ML SYRINGE SQ SCH (04:20)
[2020-04-09] MEDS ORDERED: Piperacillin/Tazobactam 3.375 GM in 0.9 % Sodium Chloride Mini Bag 100 ML IVPB SCH (08:00)
[2020-04-09] MEDS: Aspirin 81 MG TAB.CHEW PO SCH (09:22)
[2020-04-09] MEDS ORDERED: Vancomycin 1,500 MG/265 ML IV.SOLN IVPB SCH (10:00)
[2020-04-09 11:32] LABS: Rheumatoid Factor < 10 IU/mL (Less than 14)
[2020-04-09 11:36] LABS: Alanine Aminotransferase 63 Units/L (7-52); Albumin 3.3 g/dL (3.5-5.7); Alkaline Phosphatase 100 Units/L (34-104); Aspartate Amino Transferase 46 Units/L (13-39); BUN/Creatinine Ratio 21 (6-26); Bilirubin,Total 0.6 mg/dL (0.3-1.0); Blood Urea Nitrogen 14 mg/dL (6-20); Calcium 8.7 mg/dL (8.6-10.3); Carbon Dioxide 25 mEq/L (23-29); Chloride 100 mEq/L (98-107); Gamma Glutamyl Transpeptidase 20 Units/L (7-64); Globulin 3.4 g/dL (2.4-3.5); Glucose 176 mg/dL (70-105); Magnesium 1.9 mg/dL (1.6-2.6); Osmolality,Calculated 277 (280-300); Phosphorous 2.3 mg/dL (2.7-4.5); Potassium 3.9 mEq/L (3.5-5.1); Sodium 131 mEq/L (136-145); Total Protein 6.7 g/dL (6.4-8.9); Troponin I 0.03 ng/mL (< 0.04); eGFR For African Americans > 60 (> 60); eGFR For Non-African Americans > 60 (> 60)
[2020-04-09] MEDS ORDERED: 0.9 % Sodium Chloride 1,000 ML IVC ONE (12:03)
[2020-04-09 12:56] LABS: HIV-1&2 Antibody & p24 Ag Nonreactive (Nonreactive)
[2020-04-09] MEDS: cefTRIAXone 2,000 MG in Water for inj. (sterile) 20 ML IVP SCH (13:33)
[2020-04-09 15:55] LABS: Basophils # 0.1 K/mcL (0.0-0.2); Basophils % 0.3 %; Eosinophils % 0.1 %; Hematocrit 35.6 % (37.5-50.1); Hemoglobin 12.2 g/dL (12.9-16.9); Immature Granulocytes % 2.2 % (0-4); Lymphocytes # 1.6 K/mcL (0.6-4.6); Lymphocytes % 8.3 %; Mean Corpuscular HGB Conc 34.3 g/dL (31.6-35.5); Mean Corpuscular Hemoglobin 31.4 pg (28.0-33.3); Mean Corpuscular Volume 91.8 fL (83.0-100.0); Mean Platelet Volume 10.2 fL (9.4-12.4); Monocytes # 2.3 K/mcL (0.0-1.3); Monocytes % 11.7 %; Platelet Count 234 K/mcL (140-400); Red Blood Count 3.88 M/mcL (4.19-5.50); Segmented Neutrophils % 77.4 %
[2020-04-09 15:57] LABS: Neutrophils # 14.9 K/mcL (1.6-8.9); White Blood Count 19.3 K/mcL (4.3-11.1)
[2020-04-09] MEDS ORDERED: Levalbuterol Neb 1.25 MG/3 ML IH SCH (21:19)
[2020-04-09] MEDS ORDERED: Levalbuterol Neb 1.25 MG/3 ML IH PRN (21:51)
[2020-04-10 02:32] LABS: Hematocrit 37.1 % (37.5-50.1); Hemoglobin 12.1 g/dL (12.9-16.9); Mean Corpuscular HGB Conc 32.6 g/dL (31.6-35.5); Mean Corpuscular Hemoglobin 31.1 pg (28.0-33.3); Mean Corpuscular Volume 95.4 fL (83.0-100.0); Mean Platelet Volume 10.1 fL (9.4-12.4); Platelet Count 286 K/mcL (140-400); Red Blood Count 3.89 M/mcL (4.19-5.50); Red Cell Distribution Width 12.1 % (11.5-14.5); White Blood Count 17.1 K/mcL (4.3-11.1)
[2020-04-10 02:33] LABS: BUN/Creatinine Ratio 18 (6-26); Blood Urea Nitrogen 13 mg/dL (6-20); Calcium 9.2 mg/dL (8.6-10.3); Carbon Dioxide 28 mEq/L (23-29); Chloride 99 mEq/L (98-107); Glucose 156 mg/dL (70-105); Osmolality,Calculated 283 (280-300); Potassium 3.6 mEq/L (3.5-5.1); Sodium 135 mEq/L (136-145); eGFR For African Americans > 60 (> 60); eGFR For Non-African Americans > 60 (> 60)
[2020-04-10] MEDS: Azithromycin 500 MG in 0.9 % Sodium Chloride 250 ML IVPB SCH (03:47)
[2020-04-10] MEDS ORDERED: Ibuprofen 600 MG TABLET PO ONE (04:44)
[2020-04-10] MEDS: *HR* Enoxaparin 40 MG/0.4 ML SYRINGE SQ SCH (05:34)
[2020-04-10 07:56] LABS: Chlamydia Trachomatis DNA Ur NOT DETECTED (Not Detect)
[2020-04-10] MEDS: Aspirin 81 MG TAB.CHEW PO SCH (09:21)
[2020-04-10] MEDS: cefTRIAXone 2,000 MG in Water for inj. (sterile) 20 ML IVP SCH (11:30)
[2020-04-10] MEDS ORDERED: Ketorolac 30 MG/ML VIAL IVP ONE (16:56)
[2020-04-10] MEDS ORDERED: Ketorolac 15 MG/ML VIAL IVP PRN (19:48)
[2020-04-10 22:43] LABS: Bilirubin,Urine Negative (Negative); Blood,Urine Negative (Negative); Clarity,Urine Clear (Clear); Color,Urine Light-Yellow (Yellow); Glucose,Urine (UA) Normal (Normal); Ketones,Urine Negative (Negative); Leukocyte Esterase,Urine Negative (Negative); Nitrite,Urine Negative (Negative); Protein,Urine Trace mg/dL (Neg-Trace); Specific Gravity,Urine 1.019 (1.010-1.025)
[2020-04-11] MEDS: Azithromycin 500 MG in 0.9 % Sodium Chloride 250 ML IVPB SCH (04:09)
[2020-04-11] MEDS: *HR* Enoxaparin 40 MG/0.4 ML SYRINGE SQ SCH (05:25)
[2020-04-11 07:36] VITALS: BP 141/91
[2020-04-11] MEDS: Aspirin 81 MG TAB.CHEW PO SCH (08:33)
== END 2020-04-11 11:34 | disposition home or self-care (01) ==
LOC: 2ANU 20:22 → EMEROOARM 20:22 → SUATTDRO 04-09 01:50 → 2ANU 04-09 02:13
PROVIDERS: ADMIT Internal Medicine; ATTEND Family Medicine

== ENCOUNTER 2021-09-03 21:36 | Observation (INO) ==
[2021-09-03] MEDS ORDERED: Ziprasidone 20 MG, Closed System Device IM Kit 1 EACH in Water for inj. (sterile) 1 ML IM ONE (21:38)
[2021-09-03] MEDS ORDERED: Ziprasidone 20 MG/VIAL VIAL IM ONE ×2 (21:40→21:45)
[2021-09-03] MEDS ORDERED: Water for inj. (sterile) 10 ML ONE (21:47)
[2021-09-03 23:53] LABS: Acetaminophen < 10 mcg/mL (10-20); Alanine Aminotransferase 56 Units/L (7-52); Albumin 4.8 g/dL (3.5-5.7); Albumin/Globulin Ratio 1.3 (1.1-2.2); Alkaline Phosphatase 61 Units/L (34-104); Aspartate Amino Transferase 74 Units/L (13-39); BUN/Creatinine Ratio 20 (6-26); Bilirubin,Direct 0.2 mg/dL (0.0-0.2); Bilirubin,Indirect 0.7 mg/dL (0.0-1.0); Bilirubin,Total 0.9 mg/dL (0.3-1.0); Blood Urea Nitrogen 30 mg/dL (6-20); Calcium 9.9 mg/dL (8.6-10.3); Carbon Dioxide 26 mEq/L (23-29); Chloride 100 mEq/L (98-107); Ethanol < 10 mg/dL (Less than 10); Globulin 3.7 g/dL (2.4-3.5); Glucose 105 mg/dL (70-105); Osmolality,Calculated 295 (280-300); Sodium 139 mEq/L (136-145); Total Protein 8.5 g/dL (6.4-8.9); eGFR For African Americans > 60 (> 60); eGFR For Non-African Americans 51 (> 60)
[2021-09-03 23:54] LABS: Basophils % 0.2 %; Hematocrit 41.8 % (37.5-50.1); Hemoglobin 14.5 g/dL (12.9-16.9); Immature Granulocytes % 0.4 % (0-4); Lymphocytes # 1.1 K/mcL (0.6-4.6); Lymphocytes % 8.5 %; Mean Corpuscular HGB Conc 34.7 g/dL (31.6-35.5); Mean Corpuscular Hemoglobin 32.4 pg (28.0-33.3); Mean Corpuscular Volume 93.3 fL (83.0-100.0); Mean Platelet Volume 10.1 fL (9.4-12.4); Monocytes # 0.9 K/mcL (0.0-1.3); Monocytes % 6.8 %; Neutrophils # 11.3 K/mcL (1.6-8.9); Platelet Count 209 K/mcL (140-400); Red Blood Count 4.48 M/mcL (4.19-5.50); Red Cell Distribution Width 11.9 % (11.5-14.5); Segmented Neutrophils % 84.1 %; White Blood Count 13.4 K/mcL (4.3-11.1)
[2021-09-04 00:15] LABS: Creatine Kinase 2985 Units/L (30-223)
[2021-09-04 00:31] LABS: Bacteria,Urine Moderate per hpf (None-Few); Bilirubin,Urine Negative (Negative); Blood,Urine Trace (Negative); Clarity,Urine Clear (Clear); Color,Urine Yellow (Yellow); Glucose,Urine (UA) Normal (Normal); Hyaline Casts,Urine Few per lpf (None Seen); Ketones,Urine 20 mg/dL (Negative); Leukocyte Esterase,Urine Negative (Negative); Mucus,Urine Many per lpf (None-Few); Nitrite,Urine Negative (Negative); PH,Urine 5.5 pH Units (5.0-8.0); Protein,Urine 200 mg/dL (Neg-Trace); Specific Gravity,Urine > 1.030 (1.010-1.025); Sperm,Urine Present per hpf (None Seen); Squamous Epithelial Cell,Urine Few per hpf (None-Few)
[2021-09-04 00:39] LABS: Amphetamine Screen,Urine Positive ng/mL (Cutoff=1000); Barbiturate Screen,Urine Negative ng/mL (Cutoff=200); Benzodiazepines Screen,Urine Negative ng/mL (Cutoff=200); Cannabinoid Screen,Urine Positive ng/mL (Cutoff = 50); Cocaine Screen,Urine Positive ng/mL (Cutoff= 300); Opiate Screen,Urine Positive ng/mL (Cutoff=300); Phencyclidine Screen,Urine Negative ng/mL (Cutoff=25)
[2021-09-04] MEDS ORDERED: Ringers Solution, Lactated 1,000 ML IVC ONE (00:58)
[2021-09-04] MEDS ORDERED: 0.9 % Sodium Chloride 1,000 ML IVC ONE (00:58)
[2021-09-04] MEDS ORDERED: *HR* Promethazine 25 MG/ML VIAL IM PRN (01:17)
[2021-09-04] MEDS ORDERED: Melatonin 3 MG TABLET PO PRN (01:17)
[2021-09-04] MEDS ORDERED: Acetaminophen 325 MG TABLET PO PRN (01:17)
[2021-09-04] MEDS ORDERED: Naloxone 0.4 MG/ML INJ IVP PRN (01:17)
[2021-09-04] MEDS ORDERED: *HR* OxyCODONE Immed Rel 5 MG TABLET PO PRN (01:17)
[2021-09-04] MEDS ORDERED: *HR* HYDROcodone/Acet 5/325 mg TABLET PO PRN (01:17)
[2021-09-04] MEDS ORDERED: Ondansetron 4 MG/2 ML VIAL IVP PRN (01:17)
[2021-09-04] MEDS ORDERED: Ringers Solution, Lactated 1,000 ML IVC SCH (01:30)
[2021-09-04 02:21] LABS: Influenza A PCR Negative (Negative); Influenza B PCR Negative (Negative); Resp. Syncytial Virus PCR Negative (Negative)
[2021-09-04 02:22] LABS: SARS-CoV-2 by PCR (In House) Negative (Negative)
[2021-09-04 03:39] VITALS: BP 136/77; PULSE 78; TEMP 97.6; O2SAT 97
[2021-09-04 05:26] LABS: Basophils % 0.3 %; Eosinophils % 0.1 %; Hematocrit 39.9 % (37.5-50.1); Hemoglobin 13.8 g/dL (12.9-16.9); Immature Granulocytes % 0.4 % (0-4); Lymphocytes # 2.1 K/mcL (0.6-4.6); Lymphocytes % 20.1 %; Mean Corpuscular HGB Conc 34.6 g/dL (31.6-35.5); Mean Corpuscular Hemoglobin 32.4 pg (28.0-33.3); Mean Corpuscular Volume 93.7 fL (83.0-100.0); Monocytes # 0.8 K/mcL (0.0-1.3); Monocytes % 7.5 %; Neutrophils # 7.6 K/mcL (1.6-8.9); Platelet Count 184 K/mcL (140-400); Red Blood Count 4.26 M/mcL (4.19-5.50); Segmented Neutrophils % 71.6 %; White Blood Count 10.6 K/mcL (4.3-11.1)
[2021-09-04 05:44] LABS: Salicylate < 2.5 mg/dL (15.0-30.0)
[2021-09-04 05:47] LABS: BUN/Creatinine Ratio 26 (6-26); Blood Urea Nitrogen 29 mg/dL (6-20); Calcium 9.5 mg/dL (8.6-10.3); Carbon Dioxide 28 mEq/L (23-29); Chloride 103 mEq/L (98-107); Creatine Kinase 1931 Units/L (30-223); Glucose 98 mg/dL (70-105); Osmolality,Calculated 292 (280-300); Potassium 4.1 mEq/L (3.5-5.1); Sodium 138 mEq/L (136-145); eGFR For African Americans > 60 (> 60); eGFR For Non-African Americans > 60 (> 60)
[2021-09-04] MEDS ORDERED: *HR* Enoxaparin 40 MG/0.4 ML SYRINGE SQ SCH (06:00)
== END 2021-09-04 07:01 | disposition left against medical advice (07) ==
LOC: EDBD → EMEROOARM 21:36 → 3BNU 21:36 → SUATTDRO 09-04 01:35 → MERGE 09-04 01:35 → 3BNU 09-04 02:00
PROVIDERS: ADMIT Internal Medicine; ATTEND Internal Medicine